=== PATIENT | male | born 1980 | race Two or more races ===

== ENCOUNTER 2018-08-17 06:25 | Emergency (ER) | payer SELFPAY ==
[~2018-08-17] VITALS: Ht 170.2 cm; Wt 70.3 kg
[2018-08-17 06:40] VITALS: BP 121/86
[2018-08-17] MEDS ORDERED: Lidocaine 1% Plain 30 ml INJ ONE ×2 (06:45→06:46)
[2018-08-17] MEDS ORDERED: Tetanus/Diptheria/Pertussis Vaccine 0.5ml Syr IM ONE (06:45)
[2018-08-17] MEDS ORDERED: Ketorolac 30mg Inj IM ONE (07:00)
[2018-08-17] MEDS ORDERED: Sodium Chloride 500ML 500 ML IV ONE (07:15)
[2018-08-17] MEDS ORDERED: Bacitracin Oint UD TOPIC ONE ×2 (07:26→07:30)
[2018-08-17 07:30] LABS: BASOPHILS % (AUTO) 0.8 % (0.0-2.0); EOSINOPHILS % (AUTO) 0.5 % (0.0-3.0); HEMATOCRIT 45.1 % (42.0-52.0); HEMOGLOBIN 15.2 G/DL (14.2-18.0); LYMPHOCYTES % (AUTO) 26.6 % (20.0-45.0); MEAN CORPUSCULAR VOLUME 88 FL (80-99); MONOCYTES % (AUTO) 6.2 % (1.0-10.0); PLATELET COUNT 263 K/UL (150-450); RED BLOOD COUNT 5.11 M/UL (4.70-6.10); RED CELL DISTRIBUTION WIDTH 11.9 % (11.6-14.8); WHITE BLOOD COUNT 7.6 K/UL (4.8-10.8)
[2018-08-17] MEDS ORDERED: cefTRIAXone 1 GM in NS 55 ML IVPB ONE (07:30)
[2018-08-17 07:39] LABS: ANION GAP 12 mmol/L (5-15); BLOOD UREA NITROGEN 11 mg/dL (7-18); CALCIUM 8.8 MG/DL (8.5-10.1); CARBON DIOXIDE 20 MMOL/L (21-32); CHLORIDE 108 MMOL/L (98-107); CREATININE 1.1 MG/DL (0.55-1.30); POTASSIUM 3.5 MMOL/L (3.5-5.1); SODIUM 140 MMOL/L (136-145)
[2018-08-17 07:44] LABS: ALANINE AMINOTRANSFERASE 28 U/L (12-78); ALBUMIN 3.6 G/DL (3.4-5.0); ALBUMIN/GLOBULIN RATIO 1.2 (1.0-2.7); ALKALINE PHOSPHATASE 79 U/L (46-116); ASPARTATE AMINO TRANSFERASE 28 U/L (15-37); BILIRUBIN,TOTAL 0.4 MG/DL (0.2-1.0)
[2018-08-17 07:58] VITALS: BP 110/66
--- NOTE | 2018-08-17 08:01 | Emergency Room Report ---
History of Present Illness General Chief Complaint: Laceration Source: Patient, EMS Present Illness HPI 37-year-old M presents ED for evaluation. Patient brought in by EMS with laceration to right elbow. Fell through a glass window at a restaurant this morning. Patient admits to drinking. Denies LOC. Per EMS there is a large laceration to his right elbow. Wrapped in gauze. Tetanus is unknown. Patient states pain is sharp, 7 out of 10, nonradiating. Denies any other injuries. No other aggravating relieving factors. Denies any other associated symptoms Allergies: Coded Allergies: No Known Allergies (Unverified , 08/17/18) Patient History Past Medical History: none Past Surgical History: none Pertinent Family History: none Social History: Reports: alcohol use; Denies: smoking, drug use Immunizations: UTD Reviewed Nursing Documentation: PMH: Agreed; PSxH: Agreed Nursing Documentation-PMH Past Medical History: No Stated History Review of Systems All Other Systems: negative except mentioned in HPI Physical Exam Vital Signs Date Time Temp Pulse Resp B/P (MAP) Pulse Ox O2 Delivery O2 Flow Rate FiO2 08/17/18 06:22 98.8 116 20 121/86 99 Room Air 98.8 Sp02 EP Interpretation: reviewed, normal General Appearance: no apparent distress, alert, GCS 15, non-toxic Head: normocephalic Eyes: bilateral eye normal inspection, bilateral eye PERRL ENT: normal ENT inspection Neck: normal inspection Respiratory: chest non-tender, lungs clear, normal breath sounds, speaking full sentences Cardiovascular #1: regular rate, rhythm, no edema Gastrointestinal: normal inspection Rectal: heme negative stool Genitourinary: no CVA tenderness Musculoskeletal: decreased range of motion Neurologic: alert, oriented x3, responsive, motor strength/tone normal, sensory intact, speech normal Psychiatric: normal inspection Skin: laceration - 8cm laceration across flexor surface R elbow. subcutaneous fat/muscle exposed. no tendon exposure. no active bleeding Lymphatic: normal inspection Procedures Laceration/Wound Repair Laceration/Wound Repair : Consent: Verbal Wound Location: upper extremity - R elbow Wound's Depth, Shape: into muscle, linear Wound Explored: clean Betadine Prep?: Yes Anesthesia: 1% Lidocaine Wound Debrided: minimal Wound Repaired With: sutures Suture Size/Type: 4:0, proline Layer Closure?: Yes Deep Layer Suture Size/Type: 3:0, other - vicryl Sterile Dressing Applied?: Yes Splint Applied?: No Sling Applied?: No Patient Tolerated: Well Complications: None Medical Decision Making Diagnostic Impression: Primary Impression: Laceration Additional Impression: Alcohol intoxication Qualified Codes: F10.929 - Alcohol use, unspecified with intoxication, unspecified ER Course Hospital Course 37 yo M presents to ED with laceration R elbow, fell through glass window Clinical course Patient placed on stretcher. After initial history and physical I ordered tetanus shot. Patient is vomiting. We placed IV access, given IV fluids, Pepcid and Zofran, labs drawn There is approximate 8 cm laceration encompassing the flexor service of the right elbow. There is subcutaneous fat involvement, muscle exposed. No tendon involvement. There is 5 out of 5 motor strength to the extremity. No arterial bleeding. No sensory deficit. Anesthesia provided with lidocaine. Laceration repaired with deep layer as well. Tolerated procedure o/o complication. bacitracin/Dressing applied. Given IV dose of Rocephin in ED. Patient is now clinically sober. Ambulating without difficulty. Safe for discharge. Instructed to return to ED in 10-14 days for suture removal. we will prescribe abd Diagnosis - laceration, alcohol intoxication Stable and discharged to home with prescription for Tylenol #3, Keflex, BAcitracin. wound Care instructions given. Followup with PMD in 10-14 days for suture removal. Return to ED if any signs of infection develop Labs Test 08/17/18 07:10 White Blood Count 7.6 K/UL (4.8-10.8) Red Blood Count 5.11 M/UL (4.70-6.10) Hemoglobin 15.2 G/DL (14.2-18.0) Hematocrit 45.1 % (42.0-52.0) Mean Corpuscular Volume 88 FL (80-99) Mean Corpuscular Hemoglobin 29.8 PG (27.0-31.0) Mean Corpuscular Hemoglobin Concent 33.7 G/DL (32.0-36.0) Red Cell Distribution Width 11.9 % (11.6-14.8) Platelet Count 263 K/UL (150-450) Mean Platelet Volume 6.3 FL (6.5-10.1) Neutrophils (%) (Auto) 66.0 % (45.0-75.0) Lymphocytes (%) (Auto) 26.6 % (20.0-45.0) Monocytes (%) (Auto) 6.2 % (1.0-10.0) Eosinophils (%) (Auto) 0.5 % (0.0-3.0) Basophils (%) (Auto) 0.8 % (0.0-2.0) Sodium Level 140 MMOL/L (136-145) Potassium Level 3.5 MMOL/L (3.5-5.1) Chloride Level 108 MMOL/L (98-107) Carbon Dioxide Level 20 MMOL/L (21-32) Anion Gap 12 mmol/L (5-15) Blood Urea Nitrogen 11 mg/dL (7-18) Creatinine 1.1 MG/DL (0.55-1.30) Estimat Glomerular Filtration Rate > 60 mL/min (>60) Glucose Level 110 MG/DL (74-106) Calcium Level 8.8 MG/DL (8.5-10.1) Total Bilirubin 0.4 MG/DL (0.2-1.0) Aspartate Amino Transf (AST/SGOT) 28 U/L (15-37) Alanine Aminotransferase (ALT/SGPT) 28 U/L (12-78) Alkaline Phosphatase 79 U/L (46-116) Total Protein 6.7 G/DL (6.4-8.2) Albumin 3.6 G/DL (3.4-5.0) Globulin 3.1 g/dL Albumin/Globulin Ratio 1.2 (1.0-2.7) Serum Alcohol 105 mg/dL Last Vital Signs Date Time Temp Pulse Resp B/P (MAP) Pulse Ox O2 Delivery O2 Flow Rate FiO2 08/17/18 06:40 98.8 78 20 121/86 99 Room Air 98.8 Status: improved Disposition: HOME, SELF-CARE Condition: Stable Scripts Acetaminophen With Codeine (T#3) (TYLENOL #3 TAB*) Y Tab 1 TAB ORAL Q8H PRN for For Pain, #15 TAB Prov: Arben Parikh MD 08/17/18 Bacitracin (Bacitracin) 28.4 Gm Oint...g. 1 APPLIC TOPIC THREE TIMES A DAY, #28.4 GM Prov: Arben Parikh MD 08/17/18 Cephalexin* (KEFLEX*) 500 Mg Capsule 500 MG ORAL EVERY 6 HOURS for 7 Days, CAP Prov: Arben Parikh MD 08/17/18 Referrals: NOT CHOSEN [facility]/MD,REFERRING (PCP) Arben Parikh MD Aug 17, 2018 08:01
[2018-08-17] MEDS ORDERED: CEPHALEXIN500 MG ORAL (08:06)
[2018-08-17] MEDS ORDERED: BACITRACIN15 GM TOPIC (08:06)
[2018-08-17] MEDS ORDERED: ACETAMINOPHEN-1 EAC1 ORAL (08:06)
[2018-08-17 11:00] VITALS: BP 101/47
== END 2018-08-17 11:07 | disposition home or self-care (01) ==
LOC: EDBD 06:25 → EMR 07:05
DX: S51.012A Laceration without foreign body of left elbow, initial encounter (principal); W01.110A Fall on same level from slipping, tripping and stumbling with subsequent striking against sharp glass, initial encounter; Y93.9 Activity, unspecified; Y92.511 Restaurant or cafe as the place of occurrence of the external cause; F10.929 Alcohol use, unspecified with intoxication, unspecified; Z23 Encounter for immunization
CPT/HCPCS: 12002; 36415; 80053; 85025; 90471; 90715; 96365; 96366; 96372; 99284; G0480; J0696; J1885; J2001; J2405; J7040; S0028; 80329

== ENCOUNTER 2018-08-25 16:52 | Emergency (ER) | payer OTHER ==
[~2018-08-25] VITALS: Ht 182.9 cm; Wt 95.3 kg
[~2018-08-25 16:52] MED LIST: ACETAMINOPHEN-1 EAC1 ORAL; BACITRACIN15 GM TOPIC; CEPHALEXIN500 MG ORAL
[2018-08-25] MEDS ORDERED: Bacitracin Oint UD TOPIC ONE ×2 (17:45)
[2018-08-25 17:46] VITALS: BP 120/79
[2018-08-25] MEDS ORDERED: IBUPROFEN600 MG ORAL (17:46)
[2018-08-25 17:52] VITALS: BP 120/79
--- NOTE | 2018-08-25 22:15 | Emergency Room Report ---
History of Present Illness General Chief Complaint: Wound Recheck/Suture Removal Source: Patient Present Illness HPI Patient is a 37-year-old male who presented for wound check. Patient reports having laceration repair approximately 2 weeks ago. The patient reports having some improvement pain. He denies any fever or discharge from the area. The patient presented for possible suture removal. Allergies: Coded Allergies: No Known Allergies (Unverified , 08/17/18) Patient History Reviewed Nursing Documentation: PMH: Agreed; PSxH: Agreed Nursing Documentation-PMH Past Medical History: No Stated History Review of Systems All Other Systems: negative except mentioned in HPI Physical Exam Vital Signs Date Time Temp Pulse Resp B/P (MAP) Pulse Ox O2 Delivery O2 Flow Rate FiO2 08/25/18 16:58 98.9 74 16 128/85 97 Room Air 99.0 General Appearance: well appearing, no apparent distress, alert, GCS 15 Head: normocephalic, atraumatic ENT: hearing grossly normal, normal voice Neck: full range of motion, supple Respiratory: no respiratory distress, speaking full sentences Musculoskeletal: other - normal hand function, no erythema or discharge Neurologic: normal inspection, alert, oriented x3, normal gait Psychiatric: mood/affect normal Skin: other - healed laceration, two healing skin avulsions Medical Decision Making Diagnostic Impression: Primary Impression: Encounter for dressing change or suture removal ER Course Patient presented for wound check. Differential diagnosis included was not limited to infected wound, nonhealed wound, neuroma, healed wound. The sutures were removed by me. The patient is advised to follow up with primary care doctor in 2-3 days. Patient is advised to return if any worsening condition or if any changes in status that are concerning. Last Vital Signs Date Time Temp Pulse Resp B/P (MAP) Pulse Ox O2 Delivery O2 Flow Rate FiO2 08/25/18 17:52 99.0 87 16 120/79 99 Room Air 99.0 Status: improved Disposition: HOME, SELF-CARE Condition: Stable Scripts Ibuprofen* (MOTRIN*) 600 Mg Tablet 600 MG ORAL Q8H PRN for For Pain, #30 TAB 0 Refills Prov: Gui Madrigal MD 08/25/18 Referrals: NOT CHOSEN [facility]/,REFERRING (PCP) Patient Instructions: Wound Check Gui Madrigal MD Aug 25, 2018 22:15
== END 2018-08-25 17:52 | disposition home or self-care (01) ==
LOC: EMR 17:50
DX: Z48.02 Encounter for removal of sutures (principal)
CPT/HCPCS: 99282

== ENCOUNTER 2018-08-29 23:15 | Emergency (ER) | payer OTHER ==
[~2018-08-29] VITALS: Ht 193 cm; Wt 97.1 kg
[~2018-08-29 23:15] MED LIST changes: +IBUPROFEN600 MG ORAL
[2018-08-29 23:20] VITALS: BP 136/89
[2018-08-29] MEDS ORDERED: Bacitracin Oint UD TOPIC ONE ×2 (23:40→23:45)
--- NOTE | 2018-08-30 00:29 | Emergency Room Report ---
History of Present Illness General Chief Complaint: Pain Source: Patient Present Illness HPI 37-year-old male presents ED for wound check. Patient is status post laceration repair of his right elbow. Patient was here a few days ago and had sutures removed. Patient is here just to have his arm checked. States the wound is healing well. Notes tingling sensation in his right hand. Notes 5 out of 5 motor strength. Denies fevers chills. Denies pain. No other aggravating relieving factors. Denies any other associated symptoms Allergies: Coded Allergies: No Known Allergies (Unverified , 08/17/18) Patient History Past Medical History: none Past Surgical History: none Pertinent Family History: none Social History: Denies: smoking, alcohol use, drug use Immunizations: UTD Reviewed Nursing Documentation: PMH: Agreed; PSxH: Agreed Nursing Documentation-PMH Past Medical History: No Stated History Review of Systems All Other Systems: negative except mentioned in HPI Physical Exam Vital Signs Date Time Temp Pulse Resp B/P (MAP) Pulse Ox O2 Delivery O2 Flow Rate FiO2 08/29/18 23:16 99.0 75 16 136/89 98 Room Air 99.0 Sp02 EP Interpretation: reviewed, normal General Appearance: no apparent distress, alert, GCS 15, non-toxic Head: normocephalic Eyes: bilateral eye normal inspection, bilateral eye PERRL ENT: normal ENT inspection Neck: normal inspection Respiratory: normal inspection Cardiovascular #1: normal inspection Gastrointestinal: normal inspection Rectal: deferred Genitourinary: no CVA tenderness Musculoskeletal: gait/station normal, normal range of motion Neurologic: alert, oriented x3, responsive, motor strength/tone normal, sensory intact, speech normal Psychiatric: normal inspection Skin: other - laceration R elbow healing. well approximated. no discharge. Lymphatic: normal inspection Medical Decision Making Diagnostic Impression: Primary Impression: Visit for wound check ER Course Hospital Course 37-year-old M presents to ED for wound check. s/p laceration repair of R elbow Clinical course Patient placed on stretcher. On exam there is a male in no acute distress. Sutures have been removed. Wound is well approximated. No induration or erythema. No discharge. There is 5 out of 5 motor strength in the arm. No sensory deficits. Reassurance given to patient. Patient may have some intermittent paresthesias secondary to superficial nerve damage. Possibly self-limiting. Recommend close follow-up with PMD Diagnosis - visit for wound check Stable and discharged to home. Followup with PMD. Return to ED if any signs of infection develop Last Vital Signs Date Time Temp Pulse Resp B/P (MAP) Pulse Ox O2 Delivery O2 Flow Rate FiO2 08/29/18 23:20 99.0 82 16 136/89 98 Room Air 99.0 Status: improved Disposition: HOME, SELF-CARE Condition: Stable Patient Instructions: Wound Check Arben Parikh MD Aug 30, 2018 00:29
== END 2018-08-29 23:33 | disposition home or self-care (01) ==
LOC: EMR 23:31
DX: Z48.02 Encounter for removal of sutures (principal); Z48.817 Encounter for surgical aftercare following surgery on the skin and subcutaneous tissue
CPT/HCPCS: 99282